=== PATIENT | male | born 1975 | race American Indian/Alaskan Native ===

== ENCOUNTER 2017-05-26 18:40 | Emergency (ER) | payer MEDICAID, OTHER ==
[2017-05-26 18:57] VITALS: BMI 29.5
[2017-05-26 18:59] VITALS: PULSE 68; RESP 18; TEMP 98.5; O2SAT 98
--- NOTE | 2017-05-26 19:07 | ED PDOC ---
Arrival/HPI - General Chief Complaint: Pain, Chronic Time Seen by Provider: 05/26/17 18:54 Historian: Patient - History of Present Illness Narrative History of Present Illness (Text): 05/26/17 19:04 41 year old male, whose history includes lupus and rheumatoid arthritis, presents to the Emergency department complaining of increased body aches and fatigue. Patient also reports he noted "bruises on his arm and lower legs" . Patient denies any fever, chills, chest pain, shortness of breath, nausea, vomiting, diarrhea, urinary symptoms, headache, dizziness, or any other complaints. no trauma. states his body aches are typical of his RA, and this is normal for him. 05/26/17 20:59 Time/Duration: 4-6 hours Symptom Onset: Gradual Symptom Course: Unchanged Context: Home Past Medical History - Provider Review Nursing Documentation Reviewed: Yes - Infectious Disease Hx of Infectious Diseases: None - Cardiac Hx Cardiac Disorders: No - Pulmonary Hx Respiratory Disorders: No - Neurological Hx Neurological Disorder: No - HEENT Hx HEENT Disorder: No - Renal Hx Renal Disorder: No - Endocrine/Metabolic Hx Endocrine Disorders: Yes Hx Systemic Lupus Erythematosus: Yes - Hematological/Oncological Hx Blood Disorders: No - Integumentary Hx Dermatological Disorder: No - Musculoskeletal/Rheumatological Hx Musculoskeletal Disorders: Yes Hx Arthritis: Yes Hx Rheumatoid Arthritis: Yes - Gastrointestinal Hx Gastrointestinal Disorders: No - Genitourinary/Gynecological Hx Genitourinary Disorders: No - Psychiatric Hx Psychophysiologic Disorder: No Hx Substance Use: No - Anesthesia Hx Anesthesia: No Family/Social History - Physician Review Nursing Documentation Reviewed: Yes Family/Social History: Unknown Family HX Smoking Status: Never Smoked Hx Alcohol Use: No Hx Substance Use: No Allergies/Home Meds Allergies/Adverse Reactions: Allergies No Known Allergies Allergy (Verified 03/14/16 12:33) Home Medications: Home Meds Medication Instructions Recorded Confirmed Folic Acid [Folic Acid] 1 mg PO DAILY 03/14/16 03/14/16 Hydroxychloroquine Sulfate 200 mg PO BID 03/14/16 03/14/16 [Plaquenil] Methotrexate [Methotrexate] 6 cap PO .WEEKLY 03/14/16 03/14/16 traMADol [Ultram] 50 mg PO HS PRN 03/14/16 03/14/16 Review of Systems - Physician Review All systems were reviewed & negative as marked: Yes - Review of Systems Constitutional: Fatigue. absent: Fevers, Night Sweats Respiratory: absent: SOB Cardiovascular: absent: Chest Pain Gastrointestinal: absent: Diarrhea, Nausea, Vomiting Genitourinary Male: absent: Dysuria Musculoskeletal: Myalgias Skin: Other (bruises throughout body) Physical Exam Vital Signs Reviewed: Yes Vital Signs Temp Pulse Resp BP Pulse Ox 05/26/17 18:59 98.5 F 68 18 128/98 H 98 Temperature: Afebrile Blood Pressure: Hypertensive Pulse: Regular Respiratory Rate: Normal Appearance: Positive for: Well-Appearing, Non-Toxic, Comfortable Pain Distress: None Mental Status: Positive for: Alert and Oriented X 3 - Systems Exam Head: Present: Atraumatic, Normocephalic Pupils: Present: PERRL Extroacular Muscles: Present: EOMI Conjunctiva: Present: Normal Mouth: Present: Moist Mucous Membranes Neck: Present: Normal Range of Motion Respiratory/Chest: Present: Clear to Auscultation, Good Air Exchange. No: Respiratory Distress, Accessory Muscle Use Cardiovascular: Present: Regular Rate and Rhythm, Normal S1, S2. No: Murmurs Abdomen: Present: Normal Bowel Sounds. No: Tenderness, Distention, Peritoneal Signs Back: Present: Normal Inspection Upper Extremity: Present: Normal Inspection. No: Cyanosis, Edema Lower Extremity: Present: Normal Inspection. No: Edema Neurological: Present: GCS=15, CN II-XII Intact, Speech Normal Skin: Present: Other (small area of ecchymosis to right arm, minimal to right lower leg) Psychiatric: Present: Alert, Oriented x 3, Normal Insight, Normal Concentration Medical Decision Making ED Course and Treatment: 05/26/17 19:09 Impression: 41 year old male presents to the Emergency department complaining of body aches , fatigue, and bruising. suspect RA vs sle flare, r/o thrombocytopenia - no h/o of easy bleeding. pt does not want pain control-refuses pain meds. Plan: -- Type and screen -- Labs -- Reassess and disposition Progress Notes: 05/26/17 21:00 pt observed sleeping in nad. labs unremarkable advise to f/u outpt and return precautiosn advised. 05/26/17 21:03 - Lab Interpretations Lab Results: 05/26/17 19:30 05/26/17 19:30 Lab Results 05/26/17 20:20: Blood Type Confirm O POSITIVE 05/26/17 19:30: Blood Type O POSITIVE, Antibody Screen Negative, BBK History Checked No verified bt 05/26/17 19:30: Sodium 139, Potassium 4.6, Chloride 98, Carbon Dioxide 28, Anion Gap 18, BUN 20, Creatinine 0.9, Est GFR ( Amer) > 60, Est GFR (Non- Af Amer) > 60, Random Glucose 88, Calcium 9.5, Total Bilirubin 0.8, AST 30, ALT 29, Alkaline Phosphatase 45, Total Protein 7.9, Albumin 4.3, Globulin 3.6, Albumin/Globulin Ratio 1.2 05/26/17 19:30: PT 13.2 H, INR 1.15 H, APTT 34.5 05/26/17 19:30: WBC 4.3 L, RBC 4.82, Hgb 13.1 L, Hct 41.2 L, MCV 85.5, MCH 27.2 , MCHC 31.8, RDW 13.1, Plt Count 244, MPV 10.2, Gran % 53.4, Lymph % (Auto) 30.1 , [place] % (Auto) 14.1 H, Eos % (Auto) 1.9, Baso % (Auto) 0.5, Gran # 2.31, Lymph # (Auto) 1.3, [place] # (Auto) 0.6, Eos # (Auto) 0.1, Baso # (Auto) 0.02 - Scribe Statement The provider has reviewed the documentation as recorded by the Kale Manriquez Provider Scribe Attestation: All medical record entries made by the Scribdavin were at my direction and personally dictated by me. I have reviewed the chart and agree that the record accurately reflects my personal performance of the history, physical exam, medical decision making, and the department course for this patient. I have also personally directed, reviewed, and agree with the discharge instructions and disposition. Disposition/Present on Arrival - Present on Arrival Any Indicators Present on Arrival: No History of DVT/PE: No History of Uncontrolled Diabetes: No Urinary Catheter: No History of Decub. Ulcer: No History Surgical Site Infection Following: None - Disposition Have Diagnosis and Disposition been Completed?: Yes Diagnosis: Body aches, Bruising Disposition: HOME/ ROUTINE Disposition Time: 21:03 Patient Problems: Current Active Problems Problem Status Onset Body aches Acute Bruising Acute Condition: STABLE Discharge Instructions (ExitCare): Contusion (DC), Rheumatoid Arthritis, Lupus Additional Instructions: return to er with worsening symptoms or concerns. Referrals: Ambar Martinez MD [Primary Care Provider] - Follow up with primary [facility] [Outside] - Follow up with primary [facility] [Outside] - Follow up with primary Forms: [employer] (Kinyarwanda)
[2017-05-26 20:10] LABS: BASO # 0.02 K/mm3 (0.0-2.0); BASO % 0.5 % (0.0-3.0); EOS # 0.1 (0.0-0.7); EOS % 1.9 % (1.5-5.0); GRAN # 2.31 (1.4-6.5); GRAN % 53.4 % (50.0-68.0); HEMOGLOBIN 13.1 g/dL (14.0-18.0); LYMPH # 1.3 (1.2-3.4); LYMPH % 30.1 % (22.0-35.0); MEAN CELL VOLUME 85.5 fl (80.0-105.0); MEAN CORPUSCULAR HEMOGLOBIN 27.2 pg (25.0-35.0); MEAN CORPUSCULAR HGB CONC 31.8 g/dl (31.0-37.0); MEAN PLATELET VOLUME 10.2 fl (7.0-11.0); MONO # 0.6 (0.1-0.6); MONO % 14.1 % (1.0-6.0); RBC 4.82 10^6/uL (3.5-6.1); RED CELL DISTRIBUTION WIDTH 13.1 % (11.5-14.5); WHITE BLOOD COUNT 4.3 10^3/ul (4.5-11.0)
[2017-05-26 20:17] LABS: ALB/GLOB RATIO 1.2 (1.1-1.8); ALBUMIN 4.3 g/dL (3.0-4.8); CALCIUM 9.5 mg/dL (8.4-10.5); GFR AFRICAN-AMERICAN > 60; GFR NON-AFRICAN AMERICAN > 60
[2017-05-26 20:55] LABS: ALT/SGPT 29 U/L (7-56); AST/SGOT 30 U/L (17-59); BLOOD UREA NITROGEN 20 mg/dL (7-21)
[2017-05-26 20:57] LABS: INR 1.15 (0.93-1.08); PARTIAL THROMBOPLASTIN TIME 34.5 Seconds (25.1-36.5); PROTHROMBIN TIME 13.2 SECONDS (9.4-12.5)
[2017-05-26 21:34] VITALS: BP 132/91
== END 2017-05-26 21:33 | disposition home or self-care (01) ==
LOC: ED 18:40
DX: M79.1 Myalgia (principal); S40.021A Contusion of right upper arm, initial encounter; S80.11XA Contusion of right lower leg, initial encounter; X58.XXXA Exposure to other specified factors, initial encounter; Y92.9 Unspecified place or not applicable; M32.9 Systemic lupus erythematosus, unspecified; M06.9 Rheumatoid arthritis, unspecified

== ENCOUNTER 2018-01-11 08:42 | Emergency (ER) | payer OTHER ==
[2018-01-11 09:05] VITALS: RESP 18; O2SAT 99; BMI 26.9
--- NOTE | 2018-01-11 09:43 | ED PDOC ---
Arrival/HPI - General Historian: Patient - History of Present Illness Narrative History of Present Illness (Text): 01/11/18 09:31 42 yo M with PMHx of RA and SLE presents to the ED with worsening L hip pain x 4 days. Per patient, the pain began Saturday and was mild, localized to the L hip bone. He took NSAIDs which did not help. On Saturday, the pain significantly worsened, rated 10/10 in severity with radiation to the proximal L lateral thigh and L lower back. He describes the pain as sharp, states "it feels like my bone is broken", and has interfered with his sleep last night. He also endorses associated mild numbness along the L lateral thigh. He went to another ED yes terday but left before he could get imaging done. He was given "an injection" which did not help and discharged with "one percocet pill". PMHx: RA, SLE PSHx: none Allergies: NKDA Home Medications: as per chart Social Hx: denies alcohol, tobacco, illicit drug use. Works as a jeweler. Time/Duration: < week Symptom Onset: Gradual Symptom Course: Worsening Quality: Stabbing Severity Level: Severe Activities at Onset: Light <Angel Evangelista - Last Filed: 01/11/18 18:50> <Leland Tinsley - Last Filed: 01/12/18 07:18> - General Chief Complaint: Hip Pain Time Seen by Provider: 01/11/18 08:54 Past Medical History - Provider Review Nursing Documentation Reviewed: Yes - Infectious Disease Hx of Infectious Diseases: None - Cardiac Hx Cardiac Disorders: No - Pulmonary Hx Respiratory Disorders: No - Neurological Hx Neurological Disorder: No - HEENT Hx HEENT Disorder: No - Renal Hx Renal Disorder: No - Endocrine/Metabolic Hx Endocrine Disorders: Yes Hx Systemic Lupus Erythematosus: Yes - Hematological/Oncological Hx Blood Disorders: No - Integumentary Hx Dermatological Disorder: No - Musculoskeletal/Rheumatological Hx Musculoskeletal Disorders: Yes Hx Arthritis: Yes Hx Rheumatoid Arthritis: Yes - Gastrointestinal Hx Gastrointestinal Disorders: No - Genitourinary/Gynecological Hx Genitourinary Disorders: No - Psychiatric Hx Psychophysiologic Disorder: No Hx Substance Use: No - Anesthesia Hx Anesthesia: No <Angel Evangelista - Last Filed: 01/11/18 18:50> Family/Social History - Physician Review Nursing Documentation Reviewed: Yes Family/Social History: Unknown Family HX Smoking Status: Never Smoked Hx Alcohol Use: No Hx Substance Use: No <RobelregulogaleAngel - Last Filed: 01/11/18 18:50> Allergies/Home Meds <Jean CarlosAngel - Last Filed: 01/11/18 18:50> <Leland Tinsley - Last Filed: 01/12/18 07:18> Allergies/Adverse Reactions: Allergies No Known Allergies Allergy (Verified 01/11/18 08:56) Home Medications: Home Meds Medication Instructions Recorded Confirmed Folic Acid 1 mg PO DAILY 03/14/16 01/11/18 Hydroxychloroquine Sulfate 200 mg PO BID 03/14/16 01/11/18 [Plaquenil] Methotrexate 6 cap PO .WEEKLY 03/14/16 01/11/18 RX: traMADol [Ultram] 50 mg PO HS PRN 03/14/16 01/11/18 Review of Systems - Review of Systems Constitutional: Normal Eyes: Normal ENT: Normal Respiratory: Normal. absent: SOB, Cough, Wheezing Cardiovascular: Normal. absent: Chest Pain, Palpitations, Edema, Orthopnea, Syncope Gastrointestinal: Normal. absent: Abdominal Pain, Constipation, Diarrhea, Nausea, Vomiting Genitourinary Male: Normal Musculoskeletal: Arthralgias (L hip pain). absent: Back Pain, Neck Pain, Joint Swelling Skin: Normal. absent: Rash, Pruritis, Skin Lesions, Abscess Neurological: Normal. absent: Headache, Dizziness Endocrine: Normal Hemo/Lymphatic: Normal Psychiatric: Normal <Jean CarlosAngel - Last Filed: 01/11/18 18:50> - Physician Review All systems were reviewed & negative as marked: Yes <PraneethmichaelaidaLeland - Last Filed: 01/12/18 07:18> Physical Exam Vital Signs Reviewed: Yes Vital Signs Temp Pulse Resp BP Pulse Ox 01/11/18 08:57 98.2 F 76 18 126/83 99 Temperature: Afebrile Blood Pressure: Normal Pulse: Regular Respiratory Rate: Normal Appearance: Positive for: Well-Appearing, Non-Toxic, Comfortable Pain Distress: Moderate Mental Status: Positive for: Alert and Oriented X 3 - Systems Exam Head: Present: Atraumatic, Normocephalic Pupils: Present: PERRL Extroacular Muscles: Present: EOMI Conjunctiva: Present: Normal Mouth: Present: Moist Mucous Membranes Pharnyx: Present: Normal Neck: Present: Normal Range of Motion Respiratory/Chest: Present: Clear to Auscultation, Good Air Exchange. No: Respiratory Distress, Accessory Muscle Use, Wheezes, Rales, Rhonchi Cardiovascular: Present: Regular Rate and Rhythm, Normal S1, S2. No: Murmurs Abdomen: Present: Normal Bowel Sounds. No: Tenderness, Distention, Rebound, Guarding, Mass/Organomegaly Back: Present: Normal Inspection. No: CVA Tenderness, Midline Tenderness, Paraspinal Tenderness Upper Extremity: Present: Normal Inspection, Normal ROM, NORMAL PULSES, Capillary Refill < 2s. No: Cyanosis, Edema, Tenderness, Swelling, Erythema Lower Extremity: Present: Normal Inspection, NORMAL PULSES, Normal ROM (Limited L hip flexion 2/2 pain), Tenderness (TTP of L ASIS), Capillary Refill < 2 s. No: Edema, CALF TENDERNESS, Cyanosis, Swelling, Erythema, Deformity Neurological: Present: CN II-XII Intact, Speech Normal Skin: Present: Warm, Dry, Normal Color. No: Rashes Psychiatric: Present: Alert, Oriented x 3, Normal Insight, Normal Concentration <Angel Evangelista - Last Filed: 01/11/18 18:50> Vital Signs Temp Pulse Resp BP Pulse Ox 01/11/18 08:57 98.2 F 76 18 126/83 99 <Leland Tinsley - Last Filed: 01/12/18 07:18> Medical Decision Making ED Course and Treatment: 01/11/18 10:06 Impression: 42 yo M with PMHx of SLE and RA presenting to ED with worsening L hip pain x 4days Plan: --CBC, CMP --ESR, CRP --CKP --toradol --tylenol --L hip XR --monitor and disposition 01/11/18 11:11 Patient lying comfortably in bed, in no acute distress States that the toradol and tylenol helped Awaiting imaging results Reassessment Condition: Re-examined - RAD Interpretation Radiology Orders: 01/11/18 09:23 Hip Left [HIP MIN 4V W/ PELVIS LT] [RAD] Stat <Angel Evangelista - Last Filed: 01/11/18 18:50> ED Course and Treatment: 01/11/18 10:28 In agreement with resident note, which includes further HPI details. Patient was seen and evaluated with resident, came up with plan and treatment together. - Lab Interpretations Lab Results: 01/11/18 09:30 01/11/18 09:30 Lab Results 01/11/18 09:30: WBC 4.2 L, RBC 4.63, Hgb 12.6 L, Hct 39.3 L, MCV 84.9, MCH 27.2, MCHC 32.1, RDW 12.8, Plt Count 225, MPV 9.8, Gran % 64.6, Lymph % (Auto) 19.1 L , [place] % (Auto) 14.4 H, Eos % (Auto) 1.4 L, Baso % (Auto) 0.5, Gran # 2.74, Lymph # (Auto) 0.8 L, [place] # (Auto) 0.6, Eos # (Auto) 0.1, Baso # (Auto) 0.02, ESR Pending 01/11/18 09:30: Sodium 142, Potassium 4.6, Chloride 103, Carbon Dioxide 30, Anion Gap 14, BUN 20, Creatinine 0.9, Est GFR ( Amer) > 60, Est GFR (Non- Af Amer) > 60, Random Glucose 93, Calcium 8.9, Phosphorus 3.6, Magnesium 1.9, Total Bilirubin 0.7, AST 22, ALT 23, Alkaline Phosphatase 43, Total Creatine Kinase 143, C-Reactive Protein Pending, Total Protein 7.8, Albumin 4.2, Globulin 3.6, Albumin/Globulin Ratio 1.2 - RAD Interpretation Radiology Orders: 01/11/18 09:23 Hip Left [HIP MIN 4V W/ PELVIS LT] [RAD] Stat - Medication Orders Current Medication Orders: Discontinued Medications Acetaminophen (Tylenol 325mg Tab) 975 mg PO STAT STA Stop: 01/11/18 09:44 Last Admin: 01/11/18 09:59 Dose: 975 mg Ketorolac Tromethamine (Toradol) 30 mg IVP STAT STA Stop: 01/11/18 09:26 Last Admin: 01/11/18 09:59 Dose: 30 mg MAR Pain Assessment Document 01/11/18 09:59 EWO (Rec: 01/11/18 09:59 EWO [id number]) Pain Reassessment Is this a pain reassessment? No Sleep Is patient sleeping during reassessment? No Presence of Pain Presence of Pain Yes Pain Scale Used Protocol: PSCALES Pain Scale Used Numeric Location Left, Right or Bilateral Left Pain Location Body Site Hip Description Description Sharp Intensity of Pain at present 6 IVP Administration Document 01/11/18 09:59 RUIZ (Rec: 01/11/18 09:59 [facility] [id number]) Charges for Administration # of IVP Administrations 1 <Leland Tinsley - Last Filed: 01/12/18 07:18> - PA / CUSTOM BOW MAKER / Resident Statement / has reviewed & agrees with the documentation as recorded. / has examined the patient and agrees with the treatment plan. <Leland Tinsley - Last Filed: 01/12/18 07:18> Disposition/Present on Arrival - Present on Arrival Any Indicators Present on Arrival: No History of DVT/PE: No History of Uncontrolled Diabetes: No Urinary Catheter: No History of Decub. Ulcer: No History Surgical Site Infection Following: None - Disposition Have Diagnosis and Disposition been Completed?: Yes Disposition Time: 11:28 Patient Plan: Discharge <Angel Evangelista - Last Filed: 01/11/18 18:50> <Leland Tinsley - Last Filed: 01/12/18 07:18> - Disposition Diagnosis: Hip pain, left Disposition: HOME/ ROUTINE Condition: GOOD Discharge Instructions (ExitCare): Hip Pain (DC) Additional Instructions: JESSICA RICH, thank you for letting us take care of you today. Your provider was Leland Tinsley MD and you were treated for BACK AND PELVIC PAIN. The emergency medical care you received today was directed at your acute symptoms. If you were prescribed any medication, please fill it and take as directed. It may take several days for your symptoms to resolve. Return to the Emergency Department if your symptoms worsen, do not improve, or if you have any other problems. Please contact your doctor or call one of the physicians/clinics you have been referred to that are listed on the Patient Visit Information form that is included in your discharge packet. Bring any paperwork you were given at discharge with you along with any medications you are taking to your follow up visit. Our treatment cannot replace ongoing medical care by a primary care provider outside of the emergency department. Thank you for allowing the [facility] team to be part of your care today. Please follow up with your primary care provider for continued care. If symptoms worsen, please return to ED. Prescriptions: Ibuprofen [Motrin] 600 mg PO Q6H #24 tab Referrals: Ambar Martinez MD [Primary Care Provider] - Follow up with primary Forms: [employer] (Greek)
[2018-01-11 09:53] LABS: BASO # 0.02 K/mm3 (0.0-2.0); BASO % 0.5 % (0.0-3.0); EOS # 0.1 (0.0-0.7); EOS % 1.4 % (1.5-5.0); GRAN # 2.74 (1.4-6.5); GRAN % 64.6 % (50.0-68.0); HEMOGLOBIN 12.6 g/dL (14.0-18.0); LYMPH # 0.8 (1.2-3.4); LYMPH % 19.1 % (22.0-35.0); MEAN CELL VOLUME 84.9 fl (80.0-105.0); MEAN CORPUSCULAR HEMOGLOBIN 27.2 pg (25.0-35.0); MEAN CORPUSCULAR HGB CONC 32.1 g/dl (31.0-37.0); MEAN PLATELET VOLUME 9.8 fl (7.0-11.0); MONO # 0.6 (0.1-0.6); MONO % 14.4 % (1.0-6.0); RBC 4.63 10^6/uL (3.5-6.1); RED CELL DISTRIBUTION WIDTH 12.8 % (11.5-14.5); WHITE BLOOD COUNT 4.2 10^3/ul (4.5-11.0)
[2018-01-11 10:05] LABS: ALB/GLOB RATIO 1.2 (1.1-1.8); ALBUMIN 4.2 g/dL (3.0-4.8); ALT/SGPT 23 U/L (7-56); AST/SGOT 22 U/L (17-59); BLOOD UREA NITROGEN 20 mg/dL (7-21); CALCIUM 8.9 mg/dL (8.4-10.5); GFR NON-AFRICAN AMERICAN > 60
--- NOTE | 2018-01-11 11:15 | RAD ---
PROCEDURE: Left Hip X-ray Radiographs. HISTORY: r/o fracture COMPARISON: None. FINDINGS: BONES: Normal. No fracture. JOINTS: Normal. SOFT TISSUES: Normal. OTHER FINDINGS: None. IMPRESSION: Normal left hip radiographs.
[2018-01-11 11:49] VITALS: BP 132/79; PULSE 78; TEMP 98.3
== END 2018-01-11 11:48 | disposition home or self-care (01) ==
LOC: ED 08:42
DX: M25.552 Pain in left hip (principal); M06.9 Rheumatoid arthritis, unspecified; M32.9 Systemic lupus erythematosus, unspecified
CPT/HCPCS: 73503; 80053; 82550; 83735; 84100; 85025; 85651; 86140; 96374; 99283; J1885